=== PATIENT | female | born 1975 | race Caucasian/White ===

== ENCOUNTER 2023-12-23 15:53 | Emergency (ER) | payer SELFPAY ==
[2023-12-23 16:02] VITALS: BP 126/83; PULSE 78; RESP 18; TEMP 98.8; BMI 24.5
[2023-12-23] MEDS ORDERED: ACETAMINOPHEN 325 MG TABLET (FP) ONE (16:36)
[2023-12-23] MEDS: ACETAMINOPHEN 325 MG TABLET (FP) PO ONE (16:42)
[2023-12-23 17:19] LABS: EPI CELLS >36 /uL (0-25.1); HYALINE CASTS 0 /uL (0-3.1); PH,URINE 5.5 (5.0-8.0); URINE APPEARANCE CLEAR; URINE BACTERIA 691 /uL (0-1359); URINE BILIRUBIN NEGATIVE (NEGATIVE); URINE COLOR YELLOW; URINE GLUCOSE (UA) NEGATIVE (NEGATIVE); URINE KETONE NEGATIVE (NEGATIVE); URINE LEUK ESTERASE 1+ (NEGATIVE); URINE NITRITE NEGATIVE (NEGATIVE); URINE PROTEIN NEGATIVE (NEGATIVE); URINE RBC 10 /uL (0-23.9); URINE WBC 22 /uL (0-25.8)
[2023-12-23 17:26] LABS: HCG,QUALITATIVE URINE Negative
[2023-12-23] MEDS ORDERED: PHENAZOPYRIDINE HCL 100 MG TABLET (FP) ONE (18:04)
[2023-12-23] MEDS ORDERED: NITROFURANTOIN MACROCRYSTAL 50 MG CAPSULE (FP) ONE (18:04)
[2023-12-23] MEDS: PHENAZOPYRIDINE HCL 100 MG TABLET (FP) PO ONE (18:20)
[2023-12-23] MEDS: NITROFURANTOIN MACROCRYSTAL 50 MG CAPSULE (FP) PO SCH (18:20)
== END 2023-12-23 18:32 | disposition home or self-care (01) ==
LOC: JER 15:53
DX: N30.00 Acute cystitis without hematuria (principal); R30.0 Dysuria; R11.10 Vomiting, unspecified
CPT/HCPCS: 81003; 84703; 99283-25